=== PATIENT | female | born 1965 | race African-American/Black ===

== ENCOUNTER → 2018-09-15 | Outpatient (CLI) | payer OTHER ==
--- NOTE | 2018-09-15 11:16 | PCVCIMAG ---
EXAM: LEFT LOWER EXTREMITY ARTERIAL DUPLEX INDICATION: Peripheral Arterial Disease. Leg pain. FINDINGS: Left Leg: Common femoral profunda femoral arteries are patent. Since throughout the superficial femoral artery in mid and upper popliteal artery. Focal areas of 50-60% restenosis mid and distal superficial femoral artery within prior stents. Popliteal artery showing adequate patency. The anterior tibial, peroneal, posterior tibial arteries are patent. 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 Interval follow-up in 3 months is suggested. LOC:[id number]
--- NOTE | 2018-09-15 17:04 | PCVCIMAG ---
APPROVED REPORT Study performed: 09/15/2018 10:41:14 EXAM: Comprehensive 2D, Doppler, and color-flow Echocardiogram Patient Location: Echo lab Status: routine BSA: 2.11 HR: 64 bpmBP: 136/60 mmHg Rhythm: NSR Other Information Study Quality: Adequate Risk Factors: Cardiac Risk Factors: HTN, DM, Hyperlipidemia Indications Congestive Heart Failure 2D Dimensions IVSd: 11.76 (7-11mm) LVDd: 54.82 mm PWd: 12.78 (7-11mm)Ascending Ao: 33.12 (22-36mm) LVDs: 40.69 (25-40mm) Left Atrium: 46.81 (27-40mm) Aortic Root: 28.50 mm LV Single Plane 4CH: 29.91 % LV Single Plane 2CH: 42.16 % Volumes Left Atrial Volume (Systole) Single Plane 4CH: 90.85 mLSingle Plane 2CH: 106.09 mL LA ESV Index: 48.00 mL/m2 Aortic Valve AoV Peak Sidney.: 1.27 m/s AO Peak Gr.: 6.47 mmHgLVOT Max P.74 mmHg LVOT Max V: 0.66 m/s Mitral Valve E/A Ratio: 1.5 MV Decel. Time: 206.93 ms MV E Max Sidney.: 1.06 m/s MV A Sidney.: 0.69 m/s IVRT: 100.35 ms Pulmonary Valve PV Peak Sidney.: 0.88 m/sPV Peak Gr.: 3.10 mmHg Pulmonary Vein P Vein S: 0.38 m/sP Vein A: 0.28 m/s P Vein D: 0.59 m/sP Vein A Dur.: 141.9 msec P Vein S/D Ratio: 0.64 Left Ventricle The left ventricle is normal size. There is normal LV segmental wall motion. Mild concentric left ventricular hypertrophy. Left ventricular systolic function is mild to moderately decreased globally. LVEF is 40%. Grade II - pseudonormal filling dynamics. Right Ventricle The right ventricle is normal size. The right ventricular systolic function is normal. Atria Left atrium is moderately dilated. The right atrium size is normal. Aortic Valve The aortic valve is normal in structure. No aortic regurgitation is present. There is no aortic valvular stenosis. Mitral Valve The mitral valve is normal in structure. Mild mitral regurgitation. No evidence of mitral valve stenosis. Tricuspid Valve The tricuspid valve is normal in structure. Unable to assess PA pressure. Pulmonic Valve The pulmonary valve is normal in structure. There is no pulmonic valvular regurgitation. Great Vessels The aortic root is normal in size. IVC is normal in size and collapses >50% with inspiration. Pericardium There is no pericardial effusion. There is no pleural effusion. <Conclusion> The left ventricle is normal size. Mild concentric left ventricular hypertrophy. Left ventricular systolic function is mild to moderately decreased globally. LVEF is 40%. Grade II - pseudonormal filling dynamics. Left atrium is moderately dilated. The aortic valve is normal in structure. Mild mitral regurgitation. Unable to assess PA pressure. The aortic root is normal in size. There is no pericardial effusion.
== END | disposition home or self-care (01) ==
LOC: PCVCIMAG 09:34
PROVIDERS: ATTEND Internal Medicine Cardiovascular Disease
DX: I34.0 Nonrheumatic mitral (valve) insufficiency (principal); I73.9 Peripheral vascular disease, unspecified; I11.0 Hypertensive heart disease with heart failure; I50.9 Heart failure, unspecified; E08.00 Diabetes mellitus due to underlying condition with hyperosmolarity without nonketotic hyperglycemic-hyperosmolar coma (NKHHC); E78.00 Pure hypercholesterolemia, unspecified; L97.509 Non-pressure chronic ulcer of other part of unspecified foot with unspecified severity
CPT/HCPCS: 93306; 93926

== ENCOUNTER → 2018-11-26 | Outpatient (CLI) | payer OTHER ==
--- NOTE | 2018-11-26 09:56 | PCVCIMAG ---
EXAM: LEFT LOWER EXTREMITY ARTERIAL DUPLEX INDICATION: Peripheral Arterial Disease. Leg pain. FINDINGS: Left Leg: Common femoral and profunda femoral arteries are patent. Occlusion throughout the superficial femoral artery and popliteal artery within prior stents. Occlusion throughout the posterior tibial artery. Severely blunted arterial flow throughout the peroneal and anterior tibial arteries. IMPRESSION: Interval development of occlusion throughout the left superficial femoral artery/popliteal artery stents and left posterior tibial artery. LOC:[id number]
== END | disposition home or self-care (01) ==
LOC: PCVCIMAG 08:17
PROVIDERS: ATTEND Nuclear Medicine Nuclear Cardiology
DX: I73.9 Peripheral vascular disease, unspecified (principal); I25.119 Atherosclerotic heart disease of native coronary artery with unspecified angina pectoris; E78.00 Pure hypercholesterolemia, unspecified; L97.509 Non-pressure chronic ulcer of other part of unspecified foot with unspecified severity; I50.9 Heart failure, unspecified; I11.0 Hypertensive heart disease with heart failure; E11.9 Type 2 diabetes mellitus without complications; Z87.891 Personal history of nicotine dependence; Z79.4 Long term (current) use of insulin; Z79.899 Other long term (current) drug therapy
CPT/HCPCS: 93926